=== PATIENT | male | born 1970 | race Two or more races ===

== ENCOUNTER 2022-02-03 19:36 | Emergency (ER) | payer SELFPAY ==
[2022-02-03 20:06] VITALS: BP 145/91; PULSE 111; RESP 20; TEMP 36.5; O2SAT 98
--- NOTE | 2022-02-03 20:38 | ED.WOUNDLAC ---
HPI - Wound/Laceration General Chief Complaint: Wound/Laceration <DO Urmila Shafer Last Filed: 02/03/22 23:30> Stated Complaint: left middle finger lac, carpet knife <DO Urmila Shafer Last Filed: 02/03/22 23:30> Time Seen by Provider: 02/03/22 20:34 <Lucius Ram DO - Last Filed: 02/03/22 23:30> Source: RN notes reviewed <Lucius Ram DO - Last Filed: 02/03/22 23:30> History of Present Illness HPI narrative: Patient presents emergency department from home for finger laceration. Patient states that just prior to arrival he was using a carpet knife when he cut his left third digit with a carpet knife he states that is a flap injury over the distal aspect of the finger he noted a moderate amount of bleeding with the cut he states his last tetanus shot was 5 years ago he denies any numbness or tingling of the finger he denies any other injury <DO Urmila Shafer Last Filed: 02/03/22 23:30> Related Data Allergies/Adverse Reactions: Allergies Allergy/AdvReac Type Severity Reaction Status Date / Time naloxone AdvReac Unknown agitation Verified 02/03/22 20:10 <DO Urmila Shafer Last Filed: 02/03/22 23:30> Review of Systems Review of Systems: Gen.: Denies fevers or chills Musculoskeletal: Reports left third finger pain Neuro: Denies numbness, tingling, weakness Skin: See HPI Endo: Denies DM <DO Urmila Shafer Last Filed: 02/03/22 23:30> PMFSH Past Medical History Medical History: Medical History (Updated 02/03/22 @ 23:30 by Lucius Ram DO) Patient denies significant medical history <DO Urmila Shafer Last Filed: 02/03/22 23:30> Social History Social History: Social History (Updated 02/03/22 @ 20:39 by Lucius Ram DO) Smoking status: Current every day smoker <DO Urmila Shafer Last Filed: 02/03/22 23:30> Exam Narrative: APPEARANCE: No acute distress, nontoxic, resting in bed Eyes: EOMI HEENT: Normocephalic, atraumatic, RESPIRATORY: No respiratory distress MUSCULOSKELETAl: Left third finger with full flexion extension of the PIP DIP and MCP joint, capillary refill less than 3 seconds neurovascular intact NEURO: Awake and alert. Following commands, speech normal, no focal deficits SKIN:: Warm, dry. Normal Color no rash5 cm flap laceration over the left third distal finger over the medial aspect mild venous bleeding no foreign body <Lucius Ram DO - Last Filed: 02/03/22 23:30> Course Course Emergency Course: Discussed with patient results of workup and diagnosis. Discussed need for follow-up with primary care, proper use of medication, and reasons to return to the emergency department. Patient understands and agrees to current treatment plan <Lucius Ram DO - Last Filed: 02/03/22 23:30> Vital Signs Vital signs: Vital Signs Temperature 97.7 F 02/03/22 20:06 Pulse Rate 111 H 02/03/22 20:06 Respiratory Rate 20 02/03/22 20:06 Blood Pressure 145/91 H 02/03/22 20:06 Pulse Oximetry 98 02/03/22 20:06 Oxygen Delivery Room Air 02/03/22 20:06 Temperature 97.7 F 02/03/22 20:06 Pulse Rate 111 H 02/03/22 20:06 Respiratory Rate 20 02/03/22 20:06 Blood Pressure 145/91 H 02/03/22 20:06 Pulse Oximetry 98 02/03/22 20:06 Oxygen Delivery Room Air 02/03/22 20:06 <Lucius Ram DO - Last Filed: 02/03/22 23:30> Vital Signs Temperature 97.7 F 02/03/22 20:06 Pulse Rate 111 H 02/03/22 20:06 Respiratory Rate 20 02/03/22 20:06 Blood Pressure 145/91 H 02/03/22 20:06 Pulse Oximetry 98 02/03/22 20:06 Oxygen Delivery Room Air 02/03/22 20:06 Temperature 97.7 F 02/03/22 20:06 Pulse Rate 111 H 02/03/22 20:06 Respiratory Rate 20 02/03/22 20:06 Blood Pressure 145/91 H 02/03/22 20:06 Pulse Oximetry 98 02/03/22 20:06 Oxygen Delivery Room Air 02/03/22 20:06 <Dorene Hooper PA-C - Last Filed: 02/03/22 23:1
--- NOTE | 2022-02-03 23:29 | PC.NURSE ---
Pt said he was going to smoke a cigarette and when informed that he needed to wait for d/c paperwork, he said I'm leaving AMA and ambulated out of the ER c steady, even, unassisted gait.
--- NOTE | 2022-02-03 23:30 | PC.NURSE ---
Pt eloped prior to discharge. Pt walked out of room stated I'm leaving and ambulated to exit without difficulty.
== END 2022-02-03 23:29 | disposition home or self-care (01) ==
PROVIDERS: Emergency Provider Emergency Medicine
DX: S61.213A Laceration without foreign body of left middle finger without damage to nail, initial encounter (principal); F17.200 Nicotine dependence, unspecified, uncomplicated; W26.0XXA Contact with knife, initial encounter
CPT/HCPCS: 12002; 99282